=== PATIENT | female | born 1935 | race Caucasian/White ===

== ENCOUNTER 2016-08-07 11:41 | Emergency (ER) | payer MEDICARE ==
[2016-08-07 12:27] VITALS: BP 160/62
--- NOTE | 2016-08-07 12:43 | UC ---
Complaint Female HPI - HPI Summary HPI Summary: 81 YEAR OLD FEMALE PRESENTS WITH COMPLAINS OF DYSURIA - History Of Current Complaint Chief Complaint: UCGU Stated Complaint: POSSIBLE UTI Time Seen by Provider: 08/07/16 11:46 - Allergies/Home Medications Allergies/Adverse Reactions: Allergies Allergy/AdvReac Type Severity Reaction Status Date / Time Metronidazole [From Flagyl] Allergy Severe Edema Verified 08/07/16 12:04 Hydrochlorothiazide AdvReac Intermediate GI Upset Verified 08/07/16 12:04 Triamterene AdvReac Intermediate GI Upset Verified 08/07/16 12:04 Home Medications: Home Medications Fexofenadine HCl [Allergy 24-Hr] 1 tab PO DAILY PRN 08/07/16 [History Confirmed 08/07/16] Homeopathic Products [Azo Yeast Plus] 1 tab PO DAILY PRN 08/07/16 [History Confirmed 08/07/16] Ibuprofen [Motrin Ib] 800 mg PO Q8HR PRN 08/07/16 [History Confirmed 08/07/16] Magnesium Oxide [Magnesium Oxide-] 1 tab PO DAILY 08/07/16 [History Confirmed ] PMH/Surg Hx/FS Hx/Imm Hx - Surgical History Surgical History: Yes Surgery Procedure, Year, and Place: Tubal Ligation; Carpal Tunnel Repair; Bilateral Cataracts - Social History Alcohol Use: None Substance Use Type: None Smoking Status (MU): Former Smoker Review of Systems Constitutional: Negative Skin: Negative Eyes: Negative ENT: Negative Respiratory: Negative Cardiovascular: Negative Gastrointestinal: Negative Genitourinary: Dysuria, Frequency, Urgency Motor: Negative Neurovascular: Negative Musculoskeletal: Negative Neurological: Negative Psychological: Negative All Other Systems Reviewed And Are Negative: Yes Physical Exam Triage Information Reviewed: Yes Vital Signs: Initial Vital Signs Temp 37.3 C 08/07/16 11:53 Pulse 62 08/07/16 11:53 Resp 16 08/07/16 11:53 BP 160/62 08/07/16 11:53 Pulse Ox 99 08/07/16 11:53 Eye Exam: Normal ENT Exam: Normal Dental Exam: Normal Neck exam: Normal Neck: Positive: 1 Respiratory Exam: Normal Cardiovascular Exam: Normal Abdominal Exam: Normal Musculoskeletal Exam: Normal Neurological Exam: Normal Psychological Exam: Normal Skin Exam: Normal Complaint Female Dx - Differential Dx/Diagnosis Provider Diagnoses: UTI. DYSURIA Discharge - Discharge Plan Condition: Stable Disposition: HOME Prescriptions: Sulfamethox/Trimethoprim DS* [Bactrim DS 800/160 TAB*] 1 tab PO BID #14 tab Patient Education Materials: Urinary Tract Infection in Women (ED) Referrals: Osmar Mojica NP [Primary Care Provider] - If Needed
== END 2016-08-07 12:53 | disposition home or self-care (01) ==
LOC: UCEAST 11:41
DX: N39.0 Urinary tract infection, site not specified (principal); R30.0 Dysuria; Z87.891 Personal history of nicotine dependence
CPT/HCPCS: 81003; 87077; 87086; 87186; 93005; 99212; G0463